=== PATIENT | male | born 1980 | race Caucasian/White ===

== ENCOUNTER 2017-11-12 22:15 | Emergency (ER) | payer OTHER, SELFPAY ==
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
== END 2017-11-12 23:13 | disposition home or self-care (01) ==
LOC: MADERS 22:15
DX: S02.2XXA Fracture of nasal bones, initial encounter for closed fracture (principal); F17.210 Nicotine dependence, cigarettes, uncomplicated; Y04.0XXA Assault by unarmed brawl or fight, initial encounter
CPT/HCPCS: 70160

== ENCOUNTER 2019-06-12 16:51 | Emergency (ER) | payer SELFPAY ==
[~2019-06-12 16:51] MED LIST: Sodium Chloride Irrig Solution 250 ML BOT ONE
[2019-06-12] MEDS ORDERED: HYDROcodone/Acetaminophen 5/325 mg Tablet ONE ×2 (17:18→19:31)
[2019-06-12] MEDS ORDERED: Ibuprofen 800 MG TAB ONE (17:18)
[2019-06-12] MEDS ORDERED: Lidocaine 1% 20 ML MDV ONE (17:18)
[2019-06-12] MEDS ORDERED: Bacitracin 1 PK ONE (18:19)
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
== END 2019-06-12 19:38 | disposition home or self-care (01) ==
LOC: MADERS 16:51
DX: S92.355A Nondisplaced fracture of fifth metatarsal bone, left foot, initial encounter for closed fracture (principal); S52.502A Unspecified fracture of the lower end of left radius, initial encounter for closed fracture; S53.402A Unspecified sprain of left elbow, initial encounter; F17.210 Nicotine dependence, cigarettes, uncomplicated; V86.99XA Unspecified occupant of other special all-terrain or other off-road motor vehicle injured in nontraffic accident, initial encounter
CPT/HCPCS: 29105; J2001